=== PATIENT | male | born 1990 | race African-American/Black ===

== ENCOUNTER 2017-04-06 18:10 | Emergency (ER) | payer SELFPAY ==
[~2017-04-06 18:10] MED LIST: ZOVI200C24 PO
[2017-04-06 18:12] VITALS: BP 134/78; PULSE 80; RESP 12; TEMP 98.8; O2SAT 100
--- NOTE | 2017-04-06 19:20 | PD ---
HPI Chief Complaint: Complaint Time Seen by Provider: 19:16 Travel History International Travel<30 days: No Contact w/Intl Traveler<30days: No Traveled to known affect area: No History of Present Illness HPI Patient comes emergency Department complaining of dysuria and penile discharge ongoing for 1 week. Patient denies anything making it better. Pain is worse with voiding. Patient denies doing anything for this. Patient is uncertain of his partners having any symptoms. Patient denies abdominal pain, testicular pain, fevers, nausea, vomiting, or back pain. [facility] Past Medical History Medical History: Denies Significant Hx Asthma: No Autoimmune Disease: No Blood Disorders: No Heart Rhythm Problems: No Cardiovascular Problems: No Chest Pain: No Cystic Fibrosis: No Diminished Hearing: No Gastrointestinal Disorders: No Genitourinary: No Headaches: No Hypertension: No Musculoskeletal: No Neurologic: No Reproductive: No Respiratory: No Immunizations Current: Yes Seizures: No Sickle Cell Disease: No Sleep Apnea: No Past Surgical History Abdominal Surgery: No Cardiac Surgery: No Ear Surgery: No Endocrine Surgery: No Eye Surgery: No Genitourinary Surgery: No Gynecologic Surgery: No Neurologic Surgery: No Oral Surgery: No Thoracic Surgery: No Other Surgery: No Social History Alcohol Use: No Tobacco Use: No Substance Use: No Allergies-Medications (Allergen,Severity, Reaction): Coded Allergies: No Known Allergies (Verified , 01/07/15) Reported Meds & Prescriptions Reported Meds & Active Scripts Active No Active Prescriptions or Reported Medications Review of Systems Except as stated in HPI: all other systems reviewed are Neg Physical Exam Narrative GENERAL: Well-developed, well nourished, in no acute distress, and non-ill appearing. SKIN: Focused skin assessment warm and dry. HEAD: Atraumatic. Normocephalic. EYES: Pupils equal and round. EOMI. No scleral icterus. No injection or drainage. ENT: No nasal bleeding or discharge. Mucous membranes pink and moist. NECK: Trachea midline. Supple. No nuclear rigidity. RESPIRATORY: No accessory muscle use. No respiratory distress. GASTROINTESTINAL: Abdomen soft, non-tender, nondistended, and no guarding. Hepatic and splenic margins not palpable. No pulsatile mass. MUSCULOSKELETAL: No obvious deformities. No clubbing. No cyanosis. No edema. Full range of motion. NEUROLOGICAL: Awake and alert. No obvious cranial nerve deficits. Motor grossly within normal limits. Normal speech. PSYCHIATRIC: Appropriate mood and affect; insight and judgment normal. Data Data Last Documented VS Vital Signs Date Time Temp Pulse Resp B/P (MAP) Pulse Ox O2 Delivery O2 Flow Rate FiO2 04/06/17 18:12 98.8 80 12 134/78 (96) 100 Orders Orders Urinalysis - C+S If Indicated (04/06/17 18:16) Gc And Chlamydia Pcr (04/06/17 18:16) Azithromycin Powd Pack (Zithromax Powd P (04/06/17 19:30) Metronidazole (Flagyl) (04/06/17 19:30) Sodium Chloride 0.9% Flush (Ns Flush) (04/06/17 19:30) Ceftriaxone Inj (Rocephin Inj) (04/06/17 19:30) Lidocaine Pf 1% Inj (Xylocaine-Mpf 1% In (04/06/17 19:30) Ed Discharge Order (04/06/17 19:18) Urine Culture (04/06/17 18:25) Labs Laboratory Tests Test 04/06/17 18:25 Urine Color YELLOW Urine Turbidity HAZY Urine pH 6.5 Urine Specific [place] 1.029 Urine Protein TRACE mg/dL Urine Glucose (UA) NEG mg/dL Urine Ketones NEG mg/dL Urine Occult Blood SMALL Urine Nitrite NEG Urine Bilirubin NEG Urine Urobilinogen 2.0 MG/DL Urine Leukocyte Esterase LARGE Urine RBC 30 /hpf Urine WBC 33 /hpf Urine Squamous Epithelial Cells 1 /hpf Urine Bacteria OCC /hpf Urine Mucus FEW /lpf Microscopic Urinalysis Comment CULTURE INDICATED MDM Medical Decision Making Medical Screen Exam Complete: Yes Emergency Medical Condition: No Differential Diagnosis Gonorrhea, chlamydia, Trichomonas, UTI, other Narrative Course Patient in no obvious distress upon re-evaluation. All pertinent laboratory result(s) discussed with patient with the exception of his gonorrhea and Chlamydia testing is currently pending. Any questions/concerns in reference to patient diagnosis/condition discussed and clarified prior to patient's discharge. Reinforced sheer importance of close follow up with patient's primary physician or primary care clinic and/or health Department. Instructed patient to return to ED immediately, if symptoms return/worsen. Patient showed understanding of above instructions. Further instructions and recommendations were detailed in discharge paperwork. Patient ambulated without difficulty out of ED at discharge. Diagnosis Primary Impression: Possible exposure to STD Referrals: [facility] Dept. Patient Instructions: General Instructions, Sexually Transmitted Diseases (DC) Additional Instructions: Follow-up with your primary care physician and/or health Department for additional STD testing. Notify all sexual partners have them tested and treated. Do not have intercourse until all sexual partners tested and treated. Practice safe sex to prevent further STDs and/or unwanted pregnancies. If you would like a copy of your gonorrhea and chlamydia results bring a photo ID to medical records in 24-48 hours to get a copy. Return to the emergency department if symptoms get worse. Scripts No Active Prescriptions or Reported Meds Disposition: 01 DISCHARGE HOME Condition: Stable Julio Segura Apr 06, 2017 19:20
[2017-04-06 19:25] LABS: BACTERIA, URINE OCC /hpf; BLOOD, URINE SMALL (NEG); COMMENT (UR) CULTURE INDICATED; CULTURE IF INDICATED CULTURE INDICATED; GLUCOSE,URINE NEG (NEG); KETONE, URINE NEG (NEG); MUCUS URINE FEW /lpf (OCC); NITRITE,URINE NEG (NEG); PH, URINE 6.5 (5.0-8.5); SQUAMOUS EPITHELIAL CELL URINE 1 /hpf (0-5); URINE COLOR YELLOW (YELLW/STRAW)
[2017-04-06] MEDS ORDERED: LIDOCAINE HCL 1% PF 30 ML VIAL XX ONE (19:30)
[2017-04-06] MEDS ORDERED: AZITHROMYCIN PWD FOR SUSP 1 GM PACKET PO ONE (19:30)
[2017-04-06] MEDS ORDERED: metroNIDAZOLE 500 MG TAB PO ONE (19:30)
[2017-04-06] MEDS ORDERED: SODIUM CHLORIDE 0.9% FLUSH 10 ML FLUSH IVF PRN (19:30)
[2017-04-06 21:35] LABS: CHLAMYDIA PCR NOT DETECTED (NOT DETECT); NEISSERIA PCR NOT DETECTED (NOT DETECT)
== END 2017-04-06 20:32 | disposition home or self-care (01) ==
LOC: NEPK 18:10
DX: R30.0 Dysuria (principal)
CPT/HCPCS: 81001; 87086; 87491; 87591; 96372; 99284; J0696

== ENCOUNTER 2017-07-01 15:39 | Emergency (ER) | payer SELFPAY ==
[~2017-07-01] VITALS: Ht 175.3 cm; Wt 72.5 kg
[2017-07-01 15:40] VITALS: BP 126/81; PULSE 66; RESP 16; TEMP 99; O2SAT 100
[2017-07-01 17:21] LABS: BACTERIA, URINE MOD /hpf; BILIRUBIN, URINE NEG (NEG); BLOOD, URINE MOD (NEG); GLUCOSE,URINE NEG (NEG); KETONE, URINE TRACE mg/dL (NEG); MUCUS URINE FEW /lpf (OCC); NITRITE,URINE NEG (NEG); PH, URINE 6.5 (5.0-8.5); SQUAMOUS EPITHELIAL CELL URINE 1 /hpf (0-5); URINE COLOR YELLOW (YELLW/STRAW); URINE LEUKOCYTE ESTERASE LARGE (NEG)
--- NOTE | 2017-07-01 21:50 | PD ---
Physical Exam Date Seen by Provider: Jul 01, 2017 Time Seen by Provider: 20:04 Narrative 26-year-old male presents to the emergency department stating he has a lump to the head of his penis as well as dysuria and penile discharge. He denies risk of STDs. He states his current pain is 8/10. Data Data Last Documented VS Vital Signs Date Time Temp Pulse Resp B/P (MAP) Pulse Ox O2 Delivery O2 Flow Rate FiO2 07/01/17 15:40 99.0 66 16 126/81 (96) 100 Room Air Orders Orders Urinalysis - C+S If Indicated (07/01/17 15:45) Gc And Chlamydia Pcr (07/01/17 15:45) Urine Culture (07/01/17 16:10) Labs Laboratory Tests Test 07/01/17 16:10 Urine Color YELLOW Urine Turbidity HAZY Urine pH 6.5 Urine Specific [place] 1.030 Urine Protein 30 mg/dL Urine Glucose (UA) NEG mg/dL Urine Ketones TRACE mg/dL Urine Occult Blood MOD Urine Nitrite NEG Urine Bilirubin NEG Urine Urobilinogen 4.0 MG/DL Urine Leukocyte Esterase LARGE Urine RBC 62 /hpf Urine WBC 47 /hpf Urine Squamous Epithelial Cells 1 /hpf Urine Bacteria MOD /hpf Urine Mucus FEW /lpf Microscopic Urinalysis Comment CULTURE INDICATED Chlamydia trachomatis DNA (PCR) NOT DETECTED Neisseria gonorrhoeae DNA (PCR) NOT DETECTED MDM Supervised Visit with GENESIS: No Narrative Course 26-year-old male presents to the emergency department reporting a lump on his penis. Patient is initially seen in triage and workup is initiated. Patient left AGAINST MEDICAL ADVICE before he could be moved to medical bed. Diagnosis Primary Impression: Left against medical advice Scripts No Active Prescriptions or Reported Meds Disposition: 07 AGAINST MEDICAL ADVICE Jaja Jones Jul 01, 2017 21:50
== END 2017-07-01 22:09 | disposition left against medical advice (07) ==
LOC: NED 15:39
DX: R36.9 Urethral discharge, unspecified (principal); R82.99 Other abnormal findings in urine; B95.0 Streptococcus, group A, as the cause of diseases classified elsewhere; Z53.21 Procedure and treatment not carried out due to patient leaving prior to being seen by health care provider
CPT/HCPCS: 81001; 87086; 87491; 87591; 99283

== ENCOUNTER 2017-07-03 13:54 | Emergency (ER) | payer SELFPAY ==
[~2017-07-03] VITALS: Ht 175.3 cm; Wt 70.0 kg
[2017-07-03 13:55] VITALS: BP 146/71; PULSE 81; RESP 16; TEMP 98.6; O2SAT 100
[2017-07-03 14:28] LABS: BACTERIA, URINE RARE /hpf; BILIRUBIN, URINE NEG (NEG); BLOOD, URINE MOD (NEG); GLUCOSE,URINE NEG (NEG); KETONE, URINE NEG (NEG); MUCUS URINE MANY /lpf (OCC); NITRITE,URINE NEG (NEG); SQUAMOUS EPITHELIAL CELL URINE 1 /hpf (0-5); URINE COLOR YELLOW (YELLW/STRAW); URINE LEUKOCYTE ESTERASE LARGE (NEG); WHITE BLOOD CELL CLUMPS FEW
[2017-07-03] MEDS ORDERED: CEPH-460 PO (16:53)
[2017-07-03] MEDS ORDERED: CEPHALEXIN MONOHYDRATE 500 MG CAP PO ONE (17:00)
--- NOTE | 2017-07-03 17:01 | PD ---
HPI Chief Complaint: Complaint Time Seen by Provider: 16:48 Travel History International Travel<30 days: No Contact w/Intl Traveler<30days: No Traveled to known affect area: No History of Present Illness HPI 26-year-old uncircumcised male presents for evaluation of dysuria. Symptoms started 5 days ago. Reports burning sensation when he urinates with associated pain to the glans penis and foreskin. Pain is [id number], aggravated by urinating with no alleviating factors. Denies testicular or scrotal pain. Denies fevers or chills. He is sexually active with one long-term partner. He has no other complaints at this time. [facility] Past Medical History Medical History: Denies Significant Hx Asthma: No Autoimmune Disease: No Blood Disorders: No Heart Rhythm Problems: No Cardiovascular Problems: No Chest Pain: No Cystic Fibrosis: No Diminished Hearing: No Gastrointestinal Disorders: No Genitourinary: No Headaches: No Hypertension: No Musculoskeletal: No Neurologic: No Reproductive: No Respiratory: No Immunizations Current: Yes Seizures: No Sickle Cell Disease: No Sleep Apnea: No Tetanus Vaccination: Unknown Past Surgical History Surgical History: No Previous Surgery Abdominal Surgery: No Cardiac Surgery: No Ear Surgery: No Endocrine Surgery: No Eye Surgery: No Genitourinary Surgery: No Gynecologic Surgery: No Neurologic Surgery: No Oral Surgery: No Thoracic Surgery: No Other Surgery: No Social History Alcohol Use: No Tobacco Use: No Substance Use: No Allergies-Medications (Allergen,Severity, Reaction): Coded Allergies: No Known Allergies (Verified Adverse Reaction, Unknown, 07/03/17) Reported Meds & Prescriptions Reported Meds & Active Scripts Active Keflex (Cephalexin) 500 Mg Capsule 500 Mg PO Q8H 10 Days Review of Systems General / Constitutional: No: Fever, Chills Genitourinary: Positive: Dysuria Physical Exam Narrative GENERAL: Well-nourished male in no acute distress SKIN: Warm and dry. HEAD: Atraumatic. Normocephalic. EYES: Pupils equal and round. No scleral icterus. No injection or drainage. ENT: No nasal bleeding or discharge. Mucous membranes pink and moist. NECK: Trachea midline. No JVD. CARDIOVASCULAR: Regular rate and rhythm. No murmur appreciated. RESPIRATORY: No accessory muscle use. Clear to auscultation. Breath sounds equal bilaterally. GASTROINTESTINAL: Abdomen soft, non-tender, nondistended. Hepatic and splenic margins not palpable. : There is tenderness to palpation to the glans penis which is inflamed. There is an associated foul-smelling brown discharge. Data Data Last Documented VS Vital Signs Date Time Temp Pulse Resp B/P (MAP) Pulse Ox O2 Delivery O2 Flow Rate FiO2 07/03/17 13:55 98.6 81 16 146/71 (96) 100 Orders Orders Urinalysis - C+S If Indicated (07/03/17 14:08) Gc And Chlamydia Pcr (07/03/17 14:08) Urine Culture (07/03/17 14:15) Cephalexin (Keflex) (07/03/17 17:00) Ed Discharge Order (07/03/17 16:57) Labs Laboratory Tests Test 07/03/17 14:15 Urine Color YELLOW Urine Turbidity HAZY Urine pH 6.0 Urine Specific [place] 1.035 Urine Protein 30 mg/dL Urine Glucose (UA) NEG mg/dL Urine Ketones NEG mg/dL Urine Occult Blood MOD Urine Nitrite NEG Urine Bilirubin NEG Urine Urobilinogen 2.0 MG/DL Urine Leukocyte Esterase LARGE Urine RBC 59 /hpf Urine WBC 115 /hpf Urine WBC Clumps FEW Urine Squamous Epithelial Cells 1 /hpf Urine Bacteria RARE /hpf Urine Mucus MANY /lpf Microscopic Urinalysis Comment CULTURE INDICATED Chlamydia trachomatis DNA (PCR) NOT DETECTED Neisseria gonorrhoeae DNA (PCR) NOT DETECTED MDM Medical Decision Making Medical Screen Exam Complete: Yes Emergency Medical Condition: Yes Medical Record Reviewed: Yes Differential Diagnosis Balanitis, urethritis, cystitis Narrative Course The patient's examination is consistent with balanitis. The patient did have a urinalysis and GC probe sent from triage and has resulted. A GC probe today was negative and was also performed yesterday and was negative. He did have a urinalysis sent from triage yesterday as well but left prior to receiving the results. Urinalysis results yesterday grew out group A strep. The patient will be treated with Keflex. Discussed signs and symptoms that would warrant return to the emergency room. He is stable for discharge. Diagnosis Primary Impression: Balanitis Additional Instructions: Medication as prescribed. Clean the area on a daily basis with soap and water and keep the area clean and dry. Follow-up with primary care physician in 3-4 days for recheck. Return for any acutely new or worsening symptoms. Med/Other Pt SpecificInfo: Prescription(s) given Scripts Cephalexin (Keflex) 500 Mg Capsule 500 MG PO Q8H for Infection for 10 Days, #30 CAP 0 Refills Prov: Brenda Fowler MD 07/03/17 Disposition: 01 DISCHARGE HOME Condition: Stable Demetrio Galvin Jul 03, 2017 17:01
== END 2017-07-03 17:27 | disposition home or self-care (01) ==
LOC: NEPD 13:54
DX: N48.1 Balanitis (principal)
CPT/HCPCS: 81001; 86403; 87086; 87491; 87591; 99283

== ENCOUNTER 2017-09-03 13:47 | Emergency (ER) | payer SELFPAY ==
[~2017-09-03] VITALS: Ht 175.3 cm; Wt 65.0 kg
[~2017-09-03 13:47] MED LIST changes: +CEPH-460 PO; -ZOVI200C24 PO
[2017-09-03 14:35] VITALS: BP 131/76; PULSE 76; RESP 16; TEMP 99.2; O2SAT 100
--- NOTE | 2017-09-03 14:42 | PD ---
HPI Chief Complaint: Lump, Cyst, Hernia Time Seen by Provider: 14:39 Travel History International Travel<30 days: No Contact w/Intl Traveler<30days: No Traveled to known affect area: No History of Present Illness HPI 26-year-old -[place] male presents emergency department with axillary abscess which he states started 1 week ago. Patient states no previous history of abscess in the past. No history of MRSA. He denies fever, chills, and states that it started to drain spontaneously today. Pain is 9 out of 10. He denies fever, chills, or other symptoms. He has no known drug allergies. PFSH Past Medical History Asthma: No Autoimmune Disease: No Blood Disorders: No Heart Rhythm Problems: No Cardiovascular Problems: No Chest Pain: No Cystic Fibrosis: No Diminished Hearing: No Gastrointestinal Disorders: No Genitourinary: No Headaches: No Hypertension: No Musculoskeletal: No Neurologic: No Reproductive: No Respiratory: No Immunizations Current: Yes Seizures: No Sickle Cell Disease: No Sleep Apnea: No Past Surgical History Abdominal Surgery: No Cardiac Surgery: No Ear Surgery: No Endocrine Surgery: No Eye Surgery: No Genitourinary Surgery: No Gynecologic Surgery: No Neurologic Surgery: No Oral Surgery: No Thoracic Surgery: No Other Surgery: No Social History Alcohol Use: No Tobacco Use: No Substance Use: No Allergies-Medications (Allergen,Severity, Reaction): Coded Allergies: No Known Allergies (Verified Adverse Reaction, Unknown, 09/03/17) Reported Meds & Prescriptions Reported Meds & Active Scripts Active Keflex (Cephalexin) 500 Mg Capsule 500 Mg PO Q8H 10 Days Review of Systems Except as stated in HPI: all other systems reviewed are Neg General / Constitutional: No: Fever Eyes: No: Visual changes HENT: No: Headaches Cardiovascular: No: Chest Pain or Discomfort Respiratory: No: Shortness of Breath Gastrointestinal: No: Abdominal Pain Genitourinary: No: Dysuria Musculoskeletal: No: Pain Skin: Positive Lesions (See history of present illness), No Rash Neurologic: No: Weakness Psychiatric: No: Depression Endocrine: No: Polydipsia Hematologic/Lymphatic: No: Easy Bruising Physical Exam Narrative GENERAL: Patient appears in mild distress SKIN: Warm and dry. Normal color. Normal turgor. Patient has actually #2 abscesses in the right axillary region. One is draining spontaneously. HEAD: Atraumatic. Normocephalic. EYES: Pupils equal and round. No scleral icterus. No injection or drainage. ENT: No nasal bleeding or discharge. Mucous membranes pink and moist. Pharynx is clear NECK: Trachea midline. Supple and nontender. No significant lymphadenopathy. CARDIOVASCULAR: Regular rate and rhythm. RESPIRATORY: No accessory muscle use. Clear to auscultation. Breath sounds equal bilaterally. MUSCULOSKELETAL: Extremities without clubbing, cyanosis, or edema. No obvious deformities. NEUROLOGICAL: Awake and alert. No obvious cranial nerve deficits. Motor grossly within normal limits. Five out of 5 muscle strength in the arms and legs. Normal speech. PSYCHIATRIC: Appropriate mood and affect; insight and judgment normal. Data Data Last Documented VS Vital Signs Date Time Temp Pulse Resp B/P (MAP) Pulse Ox O2 Delivery O2 Flow Rate FiO2 09/03/17 14:35 99.2 76 16 131/76 (94) 100 Orders Orders Lidocai-Epi 1%-1:100,000 Inj (Xylocaine- (09/03/17 14:45) Wound Culture And Gram Stain (09/03/17 15:01) Ibuprofen (Motrin) (09/03/17 15:15) Sulfamet-Trimeth Ds 800-160 Mg (Bactrim (09/03/17 15:15) MDM Medical Decision Making Medical Screen Exam Complete: Yes Emergency Medical Condition: Yes Differential Diagnosis Ingrown hair. Abscess. MRSA. Narrative Course Abscesses are drained 2, and cultures are obtained. Patient is given ibuprofen 800 mg p.o. now, and first dose of Bactrim DS p.o. now. Patient continued on ibuprofen 800 mg 3 times daily with food #30. Patient continued on Bactrim DS twice daily 7 days. Patient is to return in 2 days for wound check and packing removal. Work note is given. Procedures Procedure Narrative After the risks and benefits were discussed the following procedure was performed: INCISION AND DRAINAGE OF ABSCESS: The area was prepped and was sterilely draped. A subcutaneous wheal of 1 % Xylocaine with lidocaine with a total number 4 mL was used to anesthetize the area. The area was properly anesthetized. A number 11 scalpel was used to make 2 separate 0.5-cm incisions across the area of the 2 abscesses. Cultures were obtained. The abscess was drained an irrigated with normal saline. Quarter inch iodoform packing was placed in the wound. Sterile dressing applied. Patient advised to have packing removed in two days. Diagnosis Primary Impression: Abscess of axilla, right Patient Instructions: Abscess Incision and Drainage (DC), General Instructions Departure Forms: Work Release Enter return to work date: Sep 07, 2017 Additional Instructions: Abscesses are drained 2, and cultures are obtained. Patient is given ibuprofen 800 mg p.o. now, and first dose of Bactrim DS p.o. now. Patient continued on ibuprofen 800 mg 3 times daily with food #30. Patient continued on Bactrim DS twice daily 7 days. Patient is to return in 2 days for wound check and packing removal. Work note is given. Med/Other Pt SpecificInfo: Prescription(s) given Scripts Ibuprofen (Ibuprofen) 800 Mg Tab 800 MG PO Q8H Y for Pain/Inflammation, #30 TAB 0 Refills Prov: Saji Villa MD 09/03/17 Sulfamethoxazole-Trimethoprim (Bactrim DS) 800-160 Mg Tab 1 TAB PO BID for Infection, #14 TAB 0 Refills Prov: Saji Villa MD 09/03/17 Disposition: 01 DISCHARGE HOME Condition: Stable Carlos Boykin Sep 03, 2017 14:42
[2017-09-03] MEDS ORDERED: LIDOCAINE 1%/EPINEPHrine 1:100,000 SOLN 20 ML VIAL INFIL ONE (14:45)
[2017-09-03] MEDS ORDERED: BACT800T5 PO (15:08)
[2017-09-03] MEDS ORDERED: IBUP1TAB7 PO (15:08)
[2017-09-03] MEDS ORDERED: SULFAMETHOXAZOLE-TRIMETHOPRIM DS 800-160 MG TAB PO ONE (15:15)
[2017-09-03] MEDS ORDERED: IBUPROFEN 800 MG TAB PO ONE (15:15)
== END 2017-09-03 15:34 | disposition home or self-care (01) ==
LOC: NEPK 13:47
DX: L02.411 Cutaneous abscess of right axilla (principal)
CPT/HCPCS: 10061; 86403; 87070; 87186; 87205